=== PATIENT | female | born 1985 | race Caucasian/White ===

== ENCOUNTER 2023-01-04 10:44 | Outpatient (CLI) | payer BC, SELFPAY | END 2023-01-04 10:45 | disposition home or self-care (01) | LOC: FRMREF 10:45 | PROVIDERS: Visit Provider Registered Nurse | DX: Z01.419 Encounter for gynecological examination (general) (routine) without abnormal findings (principal); Z13.6 Encounter for screening for cardiovascular disorders | CPT/HCPCS: 80061 ==

== ENCOUNTER 2023-01-11 15:07 | Outpatient (CLI) | payer BC, SELFPAY | END 2023-01-11 15:08 | disposition home or self-care (01) | PROVIDERS: Visit Provider Family Medicine | DX: E11.65 Type 2 diabetes mellitus with hyperglycemia (principal); I10 Essential (primary) hypertension; E78.5 Hyperlipidemia, unspecified; K52.9 Noninfective gastroenteritis and colitis, unspecified; E66.01 Morbid (severe) obesity due to excess calories | CPT/HCPCS: 80053; 82043; 82570; 84156 ==

== ENCOUNTER 2023-08-28 09:37 | Outpatient (CLI) | payer BC, SELFPAY ==
--- NOTE | 2023-08-28 09:45 | MM_ITS ---
Patient: HOMERO SNELL Facility:?[facility] Patient ID:?[id number] Site Patient ID:?[id number]. Site :?[id number] Study:?XRay-Breast Bilateral 3D W/CAD-08/28/2023 10:13:52 AM Ordering Physician:?Marilu Ramirez Final Report: BILATERAL SCREENING MAMMOGRAM WITH COMPUTER-AIDED DETECTION AND TOMOSYNTHESIS TECHNIQUE: CC and MLO views were obtained. These mammographic images have been obtained using full-field digital technique. These mammographic images were interpreted with the benefit of computer-aided detection. Breast tomosynthesis was used in this interpretation. COMPARISON FILM: None. This is a baseline study. FINDINGS: There are scattered areas of fibroglandular density. IMPRESSION: There is no radiographic evidence for malignancy. ASSESSMENT: BI-RADS Category 1: Negative RECOMMENDATION: Routine screening mammogram in 1 year. A lay language report of this examination will be provided to the patient. TRACI SHERIFF M.D. Diagnostic Radiologist [email or web address] THALIA/reinier D& Transcribed: 6:[address]/Dictated by: Traci Sheriff MD @ 09/06/2023 11:45:00 AM Signed by:?Traci Sheriff MD @09/06/2023 8:24:28 PM (Electronic Signature)
== END 2023-08-28 09:38 | disposition home or self-care (01) ==
LOC: MAMMO 09:38
PROVIDERS: PCP Family Medicine; Visit Provider Family Medicine
DX: Z12.31 Encounter for screening mammogram for malignant neoplasm of breast (principal)
CPT/HCPCS: 77063; 77067

== ENCOUNTER 2023-10-11 08:22 | Outpatient (CLI) | payer BC, SELFPAY | END 2023-10-11 08:23 | disposition home or self-care (01) | LOC: FRMREF 08:23 | PROVIDERS: PCP Family Medicine; Visit Provider Family Medicine | DX: I10 Essential (primary) hypertension (principal); E11.65 Type 2 diabetes mellitus with hyperglycemia; E66.01 Morbid (severe) obesity due to excess calories | CPT/HCPCS: 80053 ==

== ENCOUNTER 2024-01-11 14:53 | Outpatient (CLI) | payer BC, SELFPAY | END 2024-01-11 14:54 | disposition home or self-care (01) | PROVIDERS: PCP Family Medicine; Visit Provider Family Medicine | DX: E78.2 Mixed hyperlipidemia (principal); I10 Essential (primary) hypertension; E11.65 Type 2 diabetes mellitus with hyperglycemia; Z11.59 Encounter for screening for other viral diseases; Z79.85 Long-term (current) use of injectable non-insulin antidiabetic drugs | CPT/HCPCS: 80053; 80061; 82043; 82570; 86803 ==

== ENCOUNTER 2024-09-30 15:15 | Outpatient (CLI) | payer BC, SELFPAY ==
--- NOTE | 2024-09-30 15:20 | CRLHL7_ITS ---
For Patients: As a result of the Century Cures Act, medical imaging exams and procedure reports are released immediately into your electronic medical record. You may view this report before your referring provider. If you have questions, please contact your health care provider. INDICATION: BILATERAL SCREENING MAMMOGRAM, ASYMPTOMATIC 39 F COMPARISON: Baseline TECHNIQUE: CC and MLO views were obtained. These mammographic images have been obtained using full-field digital technique. These mammographic images were interpreted with the benefit of computer aided detection and tomosynthesis. BREAST COMPOSITION: The breasts are heterogeneously dense, which may obscure small masses. FINDINGS: No suspicious findings. ASSESSMENT: BI-RADS 1 Negative RECOMMENDATION: Annual screening mammogram. A lay language report of this examination will be provided to the patient. Dictated by: Dewey Colvin MD @ 10/08/2024 12:38:08 (Electronically Signed)
== END 2024-09-30 15:16 | disposition home or self-care (01) ==
LOC: MAMMO 15:15
PROVIDERS: PCP Family Medicine; Visit Provider Family Medicine
DX: Z12.31 Encounter for screening mammogram for malignant neoplasm of breast (principal); R92.333 Mammographic heterogeneous density, bilateral breasts
CPT/HCPCS: 77063; 77067

== ENCOUNTER 2025-02-09 14:37 | Outpatient (CLI) | payer BC, SELFPAY | END 2025-02-09 14:38 | disposition home or self-care (01) | PROVIDERS: PCP Family Medicine; Visit Provider Family Medicine | DX: E11.65 Type 2 diabetes mellitus with hyperglycemia (principal); E78.5 Hyperlipidemia, unspecified; I10 Essential (primary) hypertension | CPT/HCPCS: 80053; 80061; 82043; 82570 ==